=== PATIENT | female | born 1980 | race Hispanic/Latino ===

== ENCOUNTER 2017-08-24 10:15 | Outpatient (CLI) | payer MEDICARE ==
[2017-08-24] MEDS ORDERED: XYLOCAINE TOPICAL 4% TP ONE (12:00)
== END 2017-08-24 10:16 | disposition home or self-care (01) ==
LOC: WOUND 10:15
PROVIDERS: ATTEND Surgery
DX: L89.153 Pressure ulcer of sacral region, stage 3 (principal); F17.210 Nicotine dependence, cigarettes, uncomplicated
CPT/HCPCS: 11042; 11045; G0463; 99214

== ENCOUNTER 2017-09-01 08:54 | Outpatient (CLI) | payer MEDICARE ==
[2017-09-01] MEDS ORDERED: XYLOCAINE TOPICAL 4% TP ONE ×2 (09:07→14:54)
[2017-09-01] MEDS ORDERED: NACL 0.9% 500 ML IR ONE (10:14)
[2017-09-01] MEDS ORDERED: NACL 0.9% IR ONE (14:54)
== END 2017-09-01 08:55 | disposition home or self-care (01) ==
LOC: WOUND 08:54
PROVIDERS: ATTEND Surgery
DX: L89.153 Pressure ulcer of sacral region, stage 3 (principal); Q05.7 Lumbar spina bifida without hydrocephalus; F17.210 Nicotine dependence, cigarettes, uncomplicated

== ENCOUNTER 2017-09-07 13:20 | Outpatient (CLI) | payer MEDICARE ==
[2017-09-07] MEDS ORDERED: XYLOCAINE TOPICAL 4% TP ONE ×2 (13:49→15:33)
== END 2017-09-07 13:21 | disposition home or self-care (01) ==
LOC: WOUND 13:20
PROVIDERS: ATTEND Surgery
DX: L89.153 Pressure ulcer of sacral region, stage 3 (principal); Q05.7 Lumbar spina bifida without hydrocephalus; F17.210 Nicotine dependence, cigarettes, uncomplicated

== ENCOUNTER 2017-09-21 09:58 | Outpatient (CLI) | payer MEDICARE ==
[2017-09-21] MEDS ORDERED: XYLOCAINE TOPICAL 4% TP ONE ×2 (11:17→13:20)
== END 2017-09-21 09:59 | disposition home or self-care (01) ==
LOC: WOUND 09:58
PROVIDERS: ATTEND Surgery
DX: L89.153 Pressure ulcer of sacral region, stage 3 (principal); F17.210 Nicotine dependence, cigarettes, uncomplicated

== ENCOUNTER 2018-06-02 12:49 | Outpatient (CLI) | payer MEDICARE ==
[2018-06-02] MEDS ORDERED: XYLOCAINE TOPICAL 4% TP ONE ×2 (13:04→13:30)
== END 2018-06-02 12:50 | disposition home or self-care (01) ==
LOC: WOUND 12:49
PROVIDERS: ATTEND Surgery
DX: L89.153 Pressure ulcer of sacral region, stage 3 (principal); L89.313 Pressure ulcer of right buttock, stage 3; F17.210 Nicotine dependence, cigarettes, uncomplicated; Q05.7 Lumbar spina bifida without hydrocephalus; Z87.891 Personal history of nicotine dependence
CPT/HCPCS: 11043; G0463; 99214

== ENCOUNTER 2018-06-13 20:32 | Emergency (ER) | payer MEDICARE ==
[2018-06-13] MEDS ORDERED: ZOFRAN ODT ONE (21:00)
[2018-06-13] MEDS ORDERED: ZOFRAN ODT PO ONE (21:03)
--- NOTE | 2018-06-13 21:20 | Emergency Department Report ---
ED General Adult HPI - General Chief complaint: Medical Clearance Stated complaint: AMS Time Seen by Provider: 06/13/18 21:08 Source: patient, EMS Mode of arrival: Stretcher Limitations: No Limitations - History of Present Illness Initial comments: Patient is 38 years old female with history of severe kyphosis and scoliosis, wheelchair bound, history of spinal fusion. Patient brought to the emergency room via EMS for evaluation of seizure-like activity. Patient stated that she never had any associated seizure before. Family had describing how to episode as a jerking movement with eyes rolling back. Patient stated that she does not remember any of that. The patient is alert oriented 3 in no acute distress. Severity scale (0 -10): 0 - Related Data Previous Rx's Medication Instructions Recorded Last Taken Type Acetaminophen/Codeine 1 tab PO Q6H PRN #12 tab 03/29/14 Unknown Rx [Acetaminophen-Codeine #3 TAB] Cyclobenzaprine [Flexeril 10mg] 10 mg PO TID PRN #20 tablet 03/29/14 Unknown Rx Allergies Allergy/AdvReac Type Severity Reaction Status Date / Time cephalexin Allergy Rash Verified 03/28/14 21:21 ciprofloxacin [From Cipro] Allergy Rash Verified 03/28/14 21:21 ciprofloxacin HCl Allergy Rash Verified 03/28/14 21:21 [From Cipro] ketorolac tromethamine Allergy Rash Verified 03/28/14 21:21 [From Toradol] Sulfa (Sulfonamide AdvReac Shortness Verified 03/28/14 21:21 Antibiotics) of Breath ED Review of Systems ROS: Stated complaint: AMS Other details as noted in HPI Comment: All other systems reviewed and negative Constitutional: denies: chills, fever Respiratory: denies: cough, orthopnea, shortness of breath, SOB with exertion, SOB at rest, wheezing Cardiovascular: denies: chest pain Gastrointestinal: denies: abdominal pain, nausea, vomiting, diarrhea, constipation, hematemesis Neurological: headache ED Past Medical Hx - Past Medical History Hx Diabetes: No Additional medical history: kyphosis, scoliosis - Surgical History Hx Appendectomy: Yes Additional Surgical History: spinal fusion, bladder slings - Social History Smoking Status: Current Every Day Smoker Substance Use Type: None - Medications Home Medications: Home Medications Medication Instructions Recorded Confirmed Last Taken Type Acetaminophen/Codeine 1 tab PO Q6H PRN #12 tab 03/29/14 10/12/14 Unknown Rx [Acetaminophen-Codeine #3 TAB] Cyclobenzaprine [Flexeril 10mg] 10 mg PO TID PRN #20 tablet 03/29/14 10/12/14 Unknown Rx ED Physical Exam - General Limitations: No Limitations General appearance: alert, in no apparent distress - Head Head exam: Present: atraumatic, normocephalic, normal inspection - Eye Eye exam: Present: normal appearance - ENT ENT exam: Present: normal exam, normal orophraynx, mucous membranes moist - Neck Neck exam: Present: normal inspection, full ROM. Absent: tenderness, meningismus, lymphadenopathy, thyromegaly - Respiratory Respiratory exam: Present: normal lung sounds bilaterally. Absent: respiratory distress, wheezes, rales, rhonchi, chest wall tenderness, accessory muscle use, decreased breath sounds, prolonged expiratory - Cardiovascular Cardiovascular Exam: Present: regular rate, normal rhythm, normal heart sounds - GI/Abdominal GI/Abdominal exam: Present: soft, normal bowel sounds. Absent: distended, tenderness, guarding, rebound, rigid - Neurological Exam Neurological exam: Present: alert, oriented X3, CN II-XII intact - Skin Skin exam: Present: warm, intact, normal color ED Course Vital Signs 06/13/18 06/13/18 20:46 20:51 Temperature 98.5 F Pulse Rate 97 H Respiratory 16 16 Rate Blood Pressure 110/74 [Left] O2 Sat by Pulse 98 100 Oximetry ED Medical Decision Making - Lab Data Result diagrams: 06/13/18 21:36 06/13/18 21:36 - Medical Decision Making Patient is 38 years old female with history of severe kyphosis and scoliosis, wheelchair bound, history of spinal fusion. Patient brought to the emergency room via EMS for evaluation of seizure-like activity. Patient stated that she never had any associated seizure before. Family had describing how to episode a s a jerking movement with eyes rolling back. Patient stated that she does not remember any of that. The patient is alert oriented 3 in no acute distress No seizure observed in the ER. Patient remained stable. CT brain is negative. Labs reviewed and is unremarkable except for a UTI. I advised the patient and her family to follow up with a neurologist in the next 2-3 days and to return to the ER if she has more symptoms. Critical care attestation.: If time is entered above; I have spent that time in minutes in the direct care of this critically ill patient, excluding procedure time. ED Disposition Clinical Impression: Syncope, Seizure, UTI (urinary tract infection) Disposition: TO HOME OR SELFCARE Is pt being admited?: No Condition: Stable Instructions: Syncope (ED), New-Onset Seizure in Adults (ED), Urinary Tract Infection in Women (ED) Referrals: WALI PENA MD [Primary Care Provider] - 3-5 Days
[2018-06-13] MEDS ORDERED: ZOFRAN IM ONE (21:41)
[2018-06-13 21:45] LABS: Bacteria,Urine 1+ /HPF (Negative); Bilirubin,Urine NEG (Negative); Blood,Urine MOD (Negative); Color,Urine Yellow (Yellow); HCG Qualitative,Urine Negative (Negative); Mucus,Urine FEW /HPF; Protein,Urine <15 mg/dL mg/dL (Negative); Urobilinogen,Urine < 2.0 mg/dL (<2.0)
[2018-06-13] MEDS ORDERED: ZOFRAN IV ONE ×2 (21:47→23:59)
[2018-06-13 21:51] LABS: Basophils # (Auto) 0.1 K/mm3 (0.0-0.1); Basophils % (Auto) 0.6 % (0.0-1.8); Eosinophils % (Auto) 0.4 % (0.0-4.3); Hematocrit 37.7 % (30.3-42.9); Hemoglobin 12.7 gm/dl (10.1-14.3); Lymphocytes # (Auto) 2.3 K/mm3 (1.2-5.4); Lymphocytes % (Auto) 20.2 % (13.4-35.0); Mean Corpuscular HGB Conc 34 % (30-34); Mean Corpuscular Volume 85 fl (79-97); Monocytes # (Auto) 0.8 K/mm3 (0.0-0.8); Monocytes % (Auto) 6.6 % (0.0-7.3); Platelet Count 415 K/mm3 (140-440); Red Blood Count 4.43 M/mm3 (3.65-5.03); Red Cell Distribution Width 15.5 % (13.2-15.2)
[2018-06-13 22:22] LABS: Alanine Aminotransferase 7 units/L (7-56); Albumin 3.7 g/dL (3.9-5); BUN/Creatinine Ratio 28; Blood Urea Nitrogen 11 mg/dL (7-17); Calcium 9.1 mg/dL (8.4-10.2); Hemolysis Index 22
--- NOTE | 2018-06-13 23:11 | Cat Scan Report ---
FINAL REPORT PROCEDURE: CT head without contrast. TECHNIQUE: Computerized tomography of the head was performed without contrast material. HISTORY: Syncope. COMPARISON: No prior studies are available for comparison. FINDINGS: The ventricles are normal in size. The bains matter and white matter appear normal. There are no mass lesions. There is no intracranial hemorrhage. The calvarium appears intact. The mastoid air cells and visualized paranasal sinuses are well aerated. IMPRESSION: Normal study.
[2018-06-13] MEDS ORDERED: KEPPRA 500 MG/NS 0.82% 100 ML 500 MG/100 ML BAG IV NR (23:47)
[2018-06-13] MEDS ORDERED: MACROBID PO ONE (23:49)
[2018-06-14] MEDS ORDERED: ZOFRAN ONE (00:04)
[2018-06-14 00:11] VITALS: BP 119/71
== END 2018-06-14 00:11 | disposition home or self-care (01) ==
LOC: ED 20:32
DX: R56.9 Unspecified convulsions (principal); N39.0 Urinary tract infection, site not specified; R55 Syncope and collapse; F17.200 Nicotine dependence, unspecified, uncomplicated; Z88.2 Allergy status to sulfonamides; Z88.6 Allergy status to analgesic agent; Z88.1 Allergy status to other antibiotic agents
CPT/HCPCS: 36415; 70450; 80053; 81001; 81025; 85025; 96374; 96375; 99284; J2405; J1953; Q0162

== ENCOUNTER 2018-06-27 10:23 | Outpatient (CLI) | payer MEDICARE ==
[2018-06-27] MEDS ORDERED: XYLOCAINE TOPICAL 4% TP ONE (10:50)
[2018-06-27] MEDS ORDERED: SILVER NITRATE TP ONE (11:04)
== END 2018-06-27 10:24 | disposition home or self-care (01) ==
LOC: WOUND 10:23
PROVIDERS: ATTEND Surgery
DX: L89.313 Pressure ulcer of right buttock, stage 3 (principal); L89.153 Pressure ulcer of sacral region, stage 3; Q05.7 Lumbar spina bifida without hydrocephalus; Q76.419 Congenital kyphosis, unspecified region; Z87.891 Personal history of nicotine dependence
CPT/HCPCS: 87075; 87116

== ENCOUNTER 2018-07-04 09:29 | Outpatient (CLI) | payer MEDICARE ==
[2018-07-04] MEDS ORDERED: DAKIN'S FULL STRENGTH TP ONE (11:28)
[2018-07-04] MEDS ORDERED: XYLOCAINE TOPICAL 4% TP ONE (11:36)
[2018-07-04] MEDS ORDERED: SILVER NITRATE TP ONE (11:51)
== END 2018-07-04 09:30 | disposition home or self-care (01) ==
LOC: WOUND 09:29
PROVIDERS: ATTEND Surgery
DX: L89.153 Pressure ulcer of sacral region, stage 3 (principal); L89.313 Pressure ulcer of right buttock, stage 3; Q05.7 Lumbar spina bifida without hydrocephalus; F17.210 Nicotine dependence, cigarettes, uncomplicated

== ENCOUNTER 2018-07-11 10:24 | Outpatient (CLI) | payer MEDICARE ==
[2018-07-11] MEDS ORDERED: XYLOCAINE TOPICAL 4% TP ONE (10:33)
[2018-07-11] MEDS ORDERED: SILVER NITRATE TP ONE (10:33)
== END 2018-07-11 10:25 | disposition home or self-care (01) ==
LOC: WOUND 10:24
PROVIDERS: ATTEND Surgery
DX: L89.153 Pressure ulcer of sacral region, stage 3 (principal); L89.313 Pressure ulcer of right buttock, stage 3; Q05.7 Lumbar spina bifida without hydrocephalus; Z87.891 Personal history of nicotine dependence

== ENCOUNTER 2020-04-02 18:20 | Emergency (ER) | payer MEDICARE ==
[2020-04-02 18:34] VITALS: BP 117/87
[2020-04-03] MEDS ORDERED: DICYCLOMINE 20 MG/2 ML INJ IM ONE (00:33)
[2020-04-03] MEDS ORDERED: ONDANSETRON 4 MG/2 ML INJ IV ONE (00:46)
--- NOTE | 2020-04-03 01:14 | Emergency Department Report ---
ED Abdominal Pain HPI - General Chief Complaint: Abdominal Pain Stated Complaint: ABD PAIN Time Seen by Provider: 04/03/20 00:38 Source: patient Mode of arrival: Wheelchair Limitations: No Limitations - History of Present Illness Initial Comments: Patient is a 39-year-old female paraplegic patient currently self self caths presents tonight for bilateral lower abdominal pain to suprapubic urinary frequency and urgency. States some abdominal cramping with nausea. Patient denies fevers or chills, describes pain as aching cramping 5/10. Symptoms are e xacerbated by p.o. intake, symptoms are relieved by nothing tried. Patient does endorse history of renal stones. Patient is followed by urology Dr. Keisha SUMNER Complaint: abdominal pain Migration to: no migration - Related Data Previous Rx's Medication Instructions Recorded Last Taken Type Acetaminophen/Codeine 1 tab PO Q6H PRN #12 tab 03/29/14 Unknown Rx [Acetaminophen-Codeine #3 TAB] Cyclobenzaprine [Flexeril 10mg] 10 mg PO TID PRN #20 tablet 03/29/14 Unknown Rx Nitrofurantoin [place]/M-Cryst 100 mg PO Q12HR #14 capsule 06/13/18 Unknown Rx [Macrobid CAP] Ondansetron [Zofran Odt] 4 mg PO Q8HR PRN #14 tab.rapdis 06/13/18 Unknown Rx Acetaminophen/Codeine [Tylenol 1 tab PO Q6H PRN #12 tab 04/03/20 Unknown Rx /Codeine # 3 tab] Nitrofurantoin [place]/M-Cryst 100 mg PO BID 7 Days #14 capsule 04/03/20 Unknown Rx [Macrobid CAP] Ondansetron [Zofran Odt] 4 mg PO Q8HR #9 tab.rapdis 04/03/20 Unknown Rx Allergies Allergy/AdvReac Type Severity Reaction Status Date / Time cephalexin Allergy Rash Verified 03/28/14 21:21 ciprofloxacin [From Cipro] Allergy Rash Verified 03/28/14 21:21 ciprofloxacin HCl Allergy Rash Verified 03/28/14 21:21 [From Cipro] ketorolac tromethamine Allergy Rash Verified 03/28/14 21:21 [From Toradol] Sulfa (Sulfonamide AdvReac Shortness Verified 03/28/14 21:21 Antibiotics) of Breath ED Review of Systems ROS: Stated complaint: ABD PAIN Other details as noted in HPI Constitutional: malaise. denies: chills, fever Eyes: denies: eye pain, eye discharge, vision change ENT: denies: ear pain, throat pain Respiratory: denies: cough, shortness of breath, wheezing Cardiovascular: as per HPI Endocrine: no symptoms reported Gastrointestinal: abdominal pain, nausea. denies: diarrhea, constipation Genitourinary: urgency, dysuria. denies: frequency, hematuria, discharge Musculoskeletal: back pain Skin: denies: rash, lesions Neurological: denies: headache, weakness, paresthesias Psychiatric: denies: anxiety, depression Hematological/Lymphatic: denies: easy bleeding, easy bruising ED Past Medical Hx - Past Medical History Previous Medical History?: Yes Hx Diabetes: No Additional medical history: kyphosis, scoliosis - Surgical History Past Surgical History?: Yes Hx Appendectomy: Yes Additional Surgical History: spinal fusion, bladder slings - Social History Smoking Status: Current Every Day Smoker Substance Use Type: None - Medications Home Medications: Home Medications Medication Instructions Recorded Confirmed Last Taken Type Acetaminophen/Codeine 1 tab PO Q6H PRN #12 tab 03/29/14 10/12/14 Unknown Rx [Acetaminophen-Codeine #3 TAB] Cyclobenzaprine [Flexeril 10mg] 10 mg PO TID PRN #20 tablet 03/29/14 10/12/14 Unknown Rx Nitrofurantoin [place]/M-Cryst 100 mg PO Q12HR #14 capsule 06/13/18 Unknown Rx [Macrobid CAP] Ondansetron [Zofran Odt] 4 mg PO Q8HR PRN #14 tab.rapdis 06/13/18 Unknown Rx Acetaminophen/Codeine [Tylenol 1 tab PO Q6H PRN #12 tab 04/03/20 Unknown Rx /Codeine # 3 tab] Nitrofurantoin [place]/M-Cryst 100 mg PO BID 7 Days #14 capsule 04/03/20 Unknown Rx [Macrobid CAP] Ondansetron [Zofran Odt] 4 mg PO Q8HR #9 tab.rapdis 04/03/20 Unknown Rx ED Physical Exam - General Limitations: No Limitations General appearance: alert, in no apparent distress - Head Head exam: Present: atraumatic, normocephalic - Eye Eye exam: Present: normal appearance - ENT ENT exam: Present: mucous membranes moist - Neck Neck exam: Present: normal inspection - Respiratory Respiratory exam: Present: normal lung sounds bilaterally. Absent: respiratory distress, wheezes, stridor, chest wall tenderness - Cardiovascular Cardiovascular Exam: Present: regular rate, normal rhythm, normal heart sounds. Absent: systolic murmur, diastolic murmur, rubs, gallop - GI/Abdominal GI/Abdominal exam: Present: soft, normal bowel sounds. Absent: distended, tenderness, guarding, rebound, rigid, bruit, hernia - Rectal Rectal exam: Present: deferred - Extremities Exam Extremities exam: Present: normal inspection, full ROM. Absent: tenderness - Back Exam Back exam: Present: normal inspection, full ROM. Absent: tenderness, CVA tenderness (R), CVA tenderness (L) - Neurological Exam Neurological exam: Present: alert, oriented X3, normal gait - Psychiatric Psychiatric exam: Present: normal affect, normal mood - Skin Skin exam: Present: warm, dry, intact, normal color. Absent: rash ED Course Vital Signs 04/02/20 18:34 Temperature 98.4 F Pulse Rate 93 H Respiratory 16 Rate Blood Pressure 117/87 [Right] O2 Sat by Pulse 99 Oximetry ED Medical Decision Making - Lab Data Result diagrams: 04/03/20 00:45 04/03/20 00:45 - Medical Decision Making Labs noted patient be treated for UTI, this is a recurrent problem for this patient she is followed by urology for same, patient will be DC'd home with prescription for Macrobid, Tylenol 3 as needed, patient is tolerating p.o. intake at this time patient DC'd home in stable condition patient will follow-up with urology in 2 to 3 days as scheduled. Patient will follow-up with primary care doctor in 2 to 3 days as scheduled. pt verbalized agreement and understanding of discharge plan. Critical care attestation.: If time is entered above; I have spent that time in minutes in the direct care of this critically ill patient, excluding procedure time. ED Disposition Clinical Impression: UTI (urinary tract infection) Qualifiers: Urinary tract infection type: acute cystitis Hematuria presence: without hematuria Qualified Code(s): N30.00 - Acute cystitis without hematuria Disposition: DC-01 TO HOME OR SELFCARE Is pt being admited?: No Does the pt Need Aspirin: No Condition: Stable Instructions: Urinary Tract Infection, Adult, Abdominal Pain (ED) Prescriptions: Nitrofurantoin [place]/M-Cryst [Macrobid CAP] 100 mg PO BID 7 Days #14 capsule Acetaminophen/Codeine [Tylenol /Codeine # 3 tab] 1 tab PO Q6H PRN #12 tab PRN Reason: Pain Ondansetron [Zofran Odt] 4 mg PO Q8HR #9 tab.rapdis Referrals: ELYSE VALENCIA MD [Staff Physician] - 3-5 Days DANO GAFFNEY MD [Staff Physician] - 3-5 Days Forms: Work/School Release Form(ED)
[2020-04-03 01:18] LABS: Basophils # (Auto) 0.1 K/mm3 (0.0-0.1); Basophils % (Auto) 0.6 % (0.0-1.8); Eosinophils % (Auto) 0.2 % (0.0-4.3); Hematocrit 42.4 % (30.3-42.9); Hemoglobin 14.3 gm/dl (10.1-14.3); Lymphocytes # (Auto) 1.5 K/mm3 (1.2-5.4); Lymphocytes % (Auto) 11.9 % (13.4-35.0); Mean Corpuscular HGB Conc 34 % (30-34); Mean Corpuscular Volume 82 fl (79-97); Monocytes # (Auto) 0.4 K/mm3 (0.0-0.8); Monocytes % (Auto) 2.9 % (0.0-7.3); Platelet Count 446 K/mm3 (140-440); Red Blood Count 5.15 M/mm3 (3.65-5.03); Red Cell Distribution Width 17.6 % (13.2-15.2)
[2020-04-03 01:34] LABS: Alanine Aminotransferase 6 units/L (7-56); Albumin 4.1 g/dL (3.9-5); Blood Urea Nitrogen 19 mg/dL (7-17); Hemolysis Index 22
[2020-04-03 01:36] LABS: BUN/Creatinine Ratio 38
[2020-04-03] MEDS ORDERED: HYDROcodone/ACETAMINOPHEN 5-325 MG TAB PO ONE (02:00)
[2020-04-03] MEDS ORDERED: NITROFURANTOIN MONOHYD/M-CRYST 100 MG CAP PO ONE (02:00)
[2020-04-03 02:55] LABS: Bacteria,Urine 3+ /HPF (Negative); Bilirubin,Urine NEG (Negative); Blood,Urine NEG (Negative); Color,Urine Amber (Yellow); Mucus,Urine 3+ /HPF
== END 2020-04-03 03:30 | disposition home or self-care (01) ==
LOC: ED 18:20
DX: N39.0 Urinary tract infection, site not specified (principal); F17.200 Nicotine dependence, unspecified, uncomplicated; Z90.49 Acquired absence of other specified parts of digestive tract; Z79.899 Other long term (current) drug therapy; Z88.8 Allergy status to other drugs, medicaments and biological substances
CPT/HCPCS: 36415; 80053; 81001; 85025; 96372; 96374; 99283; J0500; J2405